=== PATIENT | male | born 1990 | race Caucasian/White ===

== ENCOUNTER → 2021-06-14 | Emergency (ER) | payer BC ==
[~2021-06-14] VITALS: Ht 180.3 cm; Wt 88.5 kg
[~2021-06-14] MED LIST: ACETAMINOPHEN-1 EAC1 PO; FLEXERIL PO; HYDROCODON-ACE1 EAC7 PO; HYDROCODONE-AP1 EAC6 PO; IBUPROFEN 800800 M1 PO; KEFLEX500 MG PO; ONDANSETRON HCL4 M2 PO; PRILOSEC 20 MG20 MG PO; TORADOL 10 MG T10 MG PO
[2021-06-14 22:59] VITALS: BP 130/90
== END ==
LOC: M.ERS 21:13
DX: R51.9 Headache, unspecified (principal)